=== PATIENT | male | born 1980 | race Caucasian/White ===

== ENCOUNTER 2017-11-17 11:43 | Emergency (ER) | payer OTHER ==
--- NOTE | 2017-11-17 12:47 | ED Physician Documentation ---
PD HPI OPHTHO - Stated complaint Stated Complaint: BILAT EYE IRRITATION - Chief complaint Chief Complaint: Heent - History obtained from History obtained from: Patient - History of Present Illness Timing - onset: How many days ago (4) Timing - duration: Days (4) Timing - details: Gradual onset, Still present Location: Both Quality / character: Itching, Burning, Other (with redness of skin around both eyes.) Associated symptoms: Redness, Swelling (of eyelids). No: Discharge, FB sensation, Photophobia Contributing factors: No: Exposed to conjunctivitis, Recent URI, Wears contacts Similar symptoms before: Has not had sx before Review of Systems Constitutional: denies: Fever Nose: reports: Rhinorrhea / runny nose. denies: Congestion, Sinus pressure / pain Throat: denies: Sore throat Respiratory: denies: Cough Skin: denies: Rash (not diffusely, just redness around the eyes.) PD PAST MEDICAL HISTORY - Past Medical History Past Medical History: No Derm: Eczema - Past Surgical History Past Surgical History: Yes - Present Medications Home Medications: Ambulatory Orders Medication Instructions Recorded Confirmed Flurbiprofen Sodium 1 drops OP BID #1 bottle 11/17/17 Ketotifen Fumarate [[place]] 2 drops EACHEYE TID #1 bottle 11/17/17 prednisoLONE 1% OPHTH DROPS [Pred 1 drops EACHEYE TID #1 bottle 11/17/17 Forte 1% Ophth Drops] - Allergies Allergies/Adverse Reactions: Allergies Allergy/AdvReac Type Severity Reaction Status Date / Time Penicillins Allergy Unknown Verified 11/17/17 11:50 - Social History Does the pt smoke?: No Smoking Status: Never smoker Does the pt drink ETOH?: No Does the pt have substance abuse?: No - Immunizations Immunizations are current?: Yes PD ED PE NORMAL - Vitals Vital signs reviewed: Yes - General General: Alert and oriented X 3, No acute distress, Well developed/nourished - HEENT HEENT: PERRL (mild conjunctival redness without discharge. periorbital redness with thickened skin/inflammation. ), EOMI, Ears normal, Pharynx benign - Neck Neck: Supple, no meningeal sign, No adenopathy - Cardiac Cardiac: RRR, No murmur - Respiratory Respiratory: Clear bilaterally - Derm Derm: Normal color, Warm and dry Results - Vitals Vitals: Oxygen O2 Source Room air PD MEDICAL DECISION MAKING - ED course Complexity details: considered differential (does not seem infected; appears more like allergies. ), d/w patient - Sepsis Event Vital Signs: Oxygen O2 Source Room air Departure - Departure Disposition: 01 Home, Self Care Clinical Impression: Allergic conjunctivitis Qualifiers: Laterality: bilateral Qualified Code(s): H10.13 - Acute atopic conjunctivitis, bilateral Condition: Stable Record reviewed to determine appropriate education?: Yes Instructions: ED Conjunctivitis Nonspecific Prescriptions: Flurbiprofen Sodium 1 drops OP BID #1 bottle Ketotifen Fumarate [Alaway] 2 drops EACHEYE TID #1 bottle prednisoLONE 1% OPHTH DROPS [Pred Forte 1% Ophth Drops] 1 drops EACHEYE TID #1 bottle Comments: Use the prednisolone steroid eyedrops for 5 or 6 days initially to decrease some of the symptoms. Combine it with ketotifen antihistamine eyedrops to 3 times daily as well. After that change to flare ibuprofen nonsteroidal anti- inflammatory drops twice daily for another week or 2. Recheck if not improved over the next several days to week. Use this combination in the future for recurrent episodes. Follow-up with your primary care next week as planned. Discharge Date/Time: 11/17/17 13:42
[2017-11-17 13:20] VITALS: BP 116/88
== END 2017-11-17 13:42 | disposition home or self-care (01) ==
LOC: ED 11:43
DX: H10.13 Acute atopic conjunctivitis, bilateral (principal)
CPT/HCPCS: 99283